=== PATIENT | male | born 1965 | race Caucasian/White ===

== ENCOUNTER 2024-01-25 16:36 | Inpatient (IN) | payer OTHER ==
[2024-01-25] MEDS ORDERED: LORazepam 2 MG/ML INJ IV PRN (17:10)
[2024-01-25] MEDS: SODIUM CHLORIDE 0.9% 500 ML 500 ML IV STA (17:43)
[2024-01-25 17:47] LABS: Basophils % (A) 1 %; Eosinophils % (A) 1 %; HCT 41.5 % (39.0-53.0); HGB 13.9 gm/dL (13.0-17.5); Lymphocytes # (A) 0.5 k/uL (1.0-4.8); Lymphocytes % (A) 14 %; MCH 32.6 pg (25.0-35.0); MCHC 33.5 g/dL (31.0-37.0); MCV 97.4 fL (80.0-100.0); Monocytes # (A) 0.2 k/uL (0-1.0); Monocytes % (A) 5 %; Neutrophils % (A) 79 %; RBC 4.26 m/uL (4.30-5.90); RDW 12.5 % (11.5-15.5); WBC 3.8 k/uL (3.8-10.6)
[2024-01-25] MEDS: LORazepam 2 MG/ML INJ IV STA (17:56)
[2024-01-25 18:05] LABS: ALT 115 U/L (4-49); AST 253 U/L (17-59); African American GFR (CKD) >90 (>60 ml/min/1.73 sqM); Albumin 4.6 g/dL (3.5-5.0); Alkaline Phosphatase 108 U/L (38-126); Anion Gap 21 mmol/L; Blood Urea Nitrogen 13 mg/dL (9-20); Carbon Dioxide 18 mmol/L (22-30); Chloride 100 mmol/L (98-107); Glucose 94 mg/dL (74-99); Lipase 377 U/L (23-300); Magnesium 2.1 mg/dL (1.6-2.3); Non-African American GFR(CKD) >90 (>60 ml/min/1.73 sqM); Phosphorus 3.1 mg/dL (2.5-4.5); Potassium 3.6 mmol/L (3.5-5.1); Sodium 139 mmol/L (137-145); Total Bilirubin 4.1 mg/dL (0.2-1.3); Total Protein 8.8 g/dL (6.3-8.2)
[2024-01-25 18:15] LABS: Alcohol 343 mg/dL
[2024-01-25 18:27] LABS: Platelet Count 19 k/uL (150-450)
[2024-01-25] MEDS: PANTOPRAZOLE 40 MG/10 ML VIAL IVP SCH (18:57)
[2024-01-25 19:03] LABS: Appearance,Urine Clear (Clear); Bilirubin,Urine 1+ (Negative); Blood,Urine Moderate (Negative); Color,Urine Yellow; Glucose,Urine (UA) Negative (Negative); Ketones,Urine 3+ (Negative); Leukocyte Esterase,Urine Negative (Negative); Mucus,Urine Rare /hpf; Nitrite,Urine Negative (Negative); PH, Urine 6.5 (5.0-8.0); Protein,Urine 1+ (Negative); RBC,Urine 1 /hpf (0-5); Specific Gravity,Urine 1.016 (1.001-1.035); Squamous Epithelial Cell,Urine <1 /hpf (0-4); WBC,Urine 1 /hpf (0-5)
--- NOTE | 2024-01-25 19:17 | ED ---
Alcohol HPI - General Chief Complaint: Alcohol Stated Complaint: Withdrawals, ETOH Time Seen by Provider: 01/25/24 16:53 Source: patient Mode of arrival: wheelchair Limitations: no limitations - History of Present Illness Initial Comments: 58-year-old male presenting for alcohol detox. Patient is a daily drinker normally drinks about a pint per day. He claims that his last drink was yesterday. Friend went to his hotel today and the patient had a nosebleed. He had also been vomiting and not feeling well. No history of DTs. Denies abdominal pain, chest pain, difficulty breathing, cough, fever, melena, hematochezia. - Related Data Home Medications Medication Instructions Recorded Confirmed No Known Home Medications 01/25/24 01/25/24 Allergies Allergy/AdvReac Type Severity Reaction Status Date / Time No Known Allergies Allergy Verified 01/25/24 19:52 Review of Systems ROS Statement: Those systems with pertinent positive or pertinent negative responses have been documented in the HPI. ROS Other: All systems not noted in ROS Statement are negative. Past Medical History Past Medical History: Hyperlipidemia, Hypertension Additional Past Surgical History / Comment(s): oral surgery Smoking Status: Former smoker, Vaper Past Alcohol Use History: Abuse, Daily, Heavy Past Drug Use History: None Reported General Exam Limitations: no limitations General appearance: alert, appears intoxicated Head exam: Present: atraumatic, normocephalic, normal inspection Eye exam: Present: normal appearance ENT exam: Present: other (Dried blood inside both nostrils) Neck exam: Present: normal inspection. Absent: meningismus Respiratory exam: Present: normal lung sounds bilaterally. Absent: respiratory distress, wheezes, rales, rhonchi, stridor Cardiovascular Exam: Present: regular rate, normal rhythm, normal heart sounds. Absent: systolic murmur, diastolic murmur, rubs, gallop, clicks Neurological exam: Present: alert, oriented X3 Skin exam: Present: normal color Course Vital Signs 01/25/24 01/25/24 01/25/24 16:45 17:10 18:39 Temperature 97.7 F Pulse Rate 99 87 106 H Pulse Rate [ Pulse Oximetery ] Respiratory 17 16 16 Rate Blood Pressure 146/96 149/92 148/94 Blood Pressure [Left Arm] O2 Sat by Pulse 98 95 95 Oximetry 01/26/24 01/26/24 01/26/24 00:25 04:23 05:50 Temperature 98.3 F Pulse Rate 95 103 H 104 H Pulse Rate [ Pulse Oximetery ] Respiratory 17 18 14 Rate Blood Pressure 127/83 110/77 Blood Pressure [Left Arm] O2 Sat by Pulse 97 96 95 Oximetry 01/26/24 08:00 Temperature 98.1 F Pulse Rate Pulse Rate [ 88 Pulse Oximetery ] Respiratory 18 Rate Blood Pressure Blood Pressure 160/59 [Left Arm] O2 Sat by Pulse 94 L Oximetry Medical Decision Making - Medical Decision Making Was pt. sent in by a medical professional or institution (, [facility], [facility], urgent care, hospital, or detention...) When possible be specific @ -No Did you speak to anyone other than the patient for history (EMS, parent, family, police, friend...)? What history was obtained from this source @ -No Did you review nursing and triage notes (agree or disagree)? Why? @ -I reviewed and agree with nursing and triage notes Were old charts reviewed (outside hosp., previous admission, EMS record, old EKG, old radiological studies, urgent care reports/EKG's, detention records)? Report findings @ -No old charts were reviewed Differential Diagnosis (chest pain, altered mental status, abdominal pain women, abdominal pain men, vaginal bleeding, weakness, fever, dyspnea, syncope, headache, dizziness, GI bleed, back pain, seizure, CVA, palpatations, mental health, musculoskeletal)? @ -Differential includes alcohol intoxication, delirium tremens, polysubstance use, this is not an all-inclusive list EKG interpreted by me (3pts min.). @ -As above X-rays interpreted by me (1pt min.). @ -None done CT interpreted by me (1pt min.). @ -Brain CT shows no acute intracranial process U/S interpreted by me (1pt. min.). @ -Ultrasound shows increased hepatic parenchymal echogenicity suggesting steatosis. Biliary sludge without significant gallbladder wall thickening/edema What testing was considered but not performed or refused? (CT, X-rays, U/S, labs)? Why? @ -None What meds were considered but not given or refused? Why? @ -None Did you discuss the management of the patient with other professionals (professionals i.e. , PA, FLOOR LAYER, lab, RT, psych nurse, clinical social work aide, securities counselor, teacher, customs officer, block and case maker)? Give summary @ -I initially spoke with Ulises nurse practitioner from [facility], she requested further workup regarding the patient's hepatitis. My attending Dr. Stover discussed the case with Dr. Siddiqi who accepts admission Was smoking cessation discussed for >3mins.? @ -No Was critical care preformed (if so, how long)? @ -No Were there social determinants of health that impacted care today? How? (Homelessness, low income, unemployed, alcoholism, drug addiction, transportation, low edu. Level, literacy, decrease access to med. care, fci, rehab)? @ -No Was there de-escalation of care discussed even if they declined (Discuss DNR or withdrawal of care, Hospice)? DNR status @ -No What co-morbidities impacted this encounter? (DM, HTN, Smoking, COPD, CAD, Cancer, CVA, ARF, Chemo, Hep., AIDS, mental health diagnosis, sleep apnea, morbid obesity)? @ -None Was patient admitted / discharged? Hospital course, mention meds given and route, prescriptions, significant lab abnormalities, going to OR and other pertinent info. @ -58-year-old male presenting with alcohol intoxication pending withdrawal. Patient did have a nosebleed earlier today. History and physical examination are conducted. Evidence of alcoholic hepatitis, bilirubin 4.1 AST 253 ALT 115. Lipase 377, patient is having no abdominal pain or vomiting. Serum alcohol 343. Negative urine toxicology. No evidence of UTI. Platelets are 19, patient has no history of thrombocytopenia. No active bleeding. May be due to chronic alcoholism. Ultrasound is obtained which shows steatosis and biliary sludge. Head CT shows no acute intracranial process. My attending discussed the case with [facility] physician group. Patient will be admitted for alcohol intoxication with impending withdrawal. Patient is agreeable with this plan. I discussed this case with my attending Dr. Stover Undiagnosed new problem with uncertain prognosis? @ -No Drug Therapy requiring intensive monitoring for toxicity (Heparin, Nitro, Insulin, Cardizem)? @ -No Were any procedures done? @ -No Diagnosis/symptom? @ -Alcohol intoxication, thrombocytopenia, alcoholic hepatitis Acute, or Chronic, or Acute on Chronic? @ -Acute Uncomplicated (without systemic symptoms) or Complicated (systemic symptoms)? @ -Complicated Side effects of treatment? @ -No Exacerbation, Progression, or Severe Exacerbation? @ -No Poses a threat to life or bodily function? How? (Chest pain, USA, ID, pneumonia, PE, COPD, DKA, ARF, appy, cholecystitis, CVA, Diverticulitis, Homicidal, Suicidal, threat to staff... and all critical care pts) @ -Yes - Lab Data Result diagrams: 01/26/24 14:05 01/26/24 04:52 Lab Results 01/25/24 01/25/24 01/25/24 Range/Units 17:32 17:32 18:54 WBC 3.8 (3.8-10.6) k/uL RBC 4.26 L (4.30-5.90) m/uL Hgb 13.9 (13.0-17.5) gm/dL Hct 41.5 (39.0-53.0) % MCV 97.4 (80.0-100.0) fL MCH 32.6 (25.0-35.0) pg MCHC 33.5 (31.0-37.0) g/dL RDW 12.5 (11.5-15.5) % Plt Count 19 L* (150-450) k/uL MPV 9.0 Neutrophils % 79 % Lymphocytes % 14 % Monocytes % 5 % Eosinophils % 1 % Basophils % 1 % Neutrophils # 3.0 (1.3-7.7) k/uL Lymphocytes # 0.5 L (1.0-4.8) k/uL Monocytes # 0.2 (0-1.0) k/uL Eosinophils # 0.0 (0-0.7) k/uL Basophils # 0.0 (0-0.2) k/uL Manual Slide Review Performed Sodium 139 (137-145) mmol/L Potassium 3.6 (3.5-5.1) mmol/L Chloride 100 (98-107) mmol/L Carbon Dioxide 18 L (22-30) mmol/L Anion Gap 21 mmol/L BUN 13 (9-20) mg/dL Creatinine 0.75 (0.66-1.25) mg/dL Est GFR (CKD-EPI)AfAm >90 (>60 ml/min/1.73 sqM) Est GFR (CKD-EPI)NonAf >90 (>60 ml/min/1.73 sqM) Glucose 94 (74-99) mg/dL Calcium 8.0 L (8.4-10.2) mg/dL Phosphorus 3.1 (2.5-4.5) mg/dL Magnesium 2.1 (1.6-2.3) mg/dL Total Bilirubin 4.1 H (0.2-1.3) mg/dL AST 253 H (17-59) U/L ALT 115 H (4-49) U/L Alkaline Phosphatase 108 (38-126) U/L Total Protein 8.8 H (6.3-8.2) g/dL Albumin 4.6 (3.5-5.0) g/dL Lipase 377 H (23-300) U/L Urine Color Yellow Urine Appearance Clear (Clear) Urine pH 6.5 (5.0-8.0) Ur Specific [place] 1.016 (1.001-1.035) Urine Protein 1+ H (Negative) Urine Glucose (UA) Negative (Negative) Urine Ketones 3+ H (Negative) Urine Blood Moderate H (Negative) Urine Nitrite Negative (Negative) Urine Bilirubin 1+ H (Negative) Urine Urobilinogen 4.0 (<2.0) mg/dL Ur Leukocyte Esterase Negative (Negative) Urine RBC 1 (0-5) /hpf Urine WBC 1 (0-5) /hpf Ur Squamous Epith Cells <1 (0-4) /hpf Urine Mucus Rare H (None) /hpf Urine Opiates Screen Not Detected (NotDetected) Ur Oxycodone Screen Not Detected (NotDetected) Urine Methadone Screen Not Detected (NotDetected) Ur Barbiturates Screen Not Detected (NotDetected) U Tricyclic Antidepress Not Detected (NotDetected) Ur Phencyclidine Scrn Not Detected (NotDetected) Ur Amphetamines Screen Not Detected (NotDetected) U Methamphetamines Scrn Not Detected (NotDetected) U Benzodiazepines Scrn Not Detected (NotDetected) Urine Cocaine Screen Not Detected (NotDetected) U Marijuana (THC) Screen Not Detected (NotDetected) Serum Alcohol 343 H* mg/dL Disposition Clinical Impression: Alcoholic intoxication, Thrombocytopenia Disposition: ADMITTED IP TO THIS [facility] Condition: Serious
[2024-01-25 19:25] LABS: Amphetamine Screen,Urine Not Detected (NotDetected); Barbiturate Screen,Urine Not Detected (NotDetected); Benzodiazepines Screen,Urine Not Detected (NotDetected); Cocaine Screen,Urine Not Detected (NotDetected); Methadone Screen, Urine Not Detected (NotDetected); Opiate Screen,Urine Not Detected (NotDetected); Oxycodone Screen, Urine Not Detected (NotDetected); Phencyclidine Screen,Urine Not Detected (NotDetected); Tricyclic Antidepressant,Urine Not Detected (NotDetected); Urn Cannabinoid Scrn Not Detected (NotDetected)
--- NOTE | 2024-01-25 19:45 | US ---
EXAMINATION TYPE: US abdomen limited DATE OF EXAM: 01/25/2024 COMPARISON: NONE CLINICAL INDICATION: Male, 58 years old with history of elevated bilirubin; elevated liver enzymes. P t is an alcoholic TECHNIQUE: Grayscale and color Doppler imaging of the right upper quadrant was performed. FINDINGS: EXAM MEASUREMENTS: Liver Length: 19.7 cm Gallbladder Wall: 0.3 cm CBD: 0.2 cm Right Kidney: 13.5 x 6.6 x 6.0 cm BOX CUTTER NOTES: Pancreas: parts seen appear wnl Liver: Increased attenuation, decreased visualization of vessels suggestive of fatty infiltrate Gallbladder: Tumefactive sludge seen inside Evidence for sonographic Yañez's sign: No CBD: limited visualization Right Kidney: wnl IMPRESSION: 1. Increased hepatic parenchymal echogenicity suggesting steatosis. 2. Biliary sludge without significant gallbladder wall thickening/edema. [facility], , 01/25/2024 7:43 PM
--- NOTE | 2024-01-25 20:31 | CT ---
EXAMINATION TYPE: CT brain wo con DATE OF EXAM: 01/25/2024 8:16 PM COMPARISON: None available. CLINICAL INDICATION: Male, 58 years old with history of SIM, thrombocytopenia, SIM, thrombocytopenia. TECHNIQUE: Brain: Axial CT images of the brain were obtained with coronal and sagittal reformats created and rev iewed. Contrast used: None. Oral contrast used: None. CT DLP: 1168.4 mGycm, Automated exposure control for dose reduction was used. FINDINGS: Brain: Extra-axial spaces: No abnormal extra-axial fluid collections. Ventricular system: Within normal limits Cerebral parenchyma: No acute intraparenchymal hemorrhage or mass effect. The maldonado-white junction is well differentiated. Scattered hypoattenuating areas are seen within the white matter. Cerebellum: Unremarkable. Mass effect: No evidence of midline shift. Intracranial vasculature: unremarkable Soft tissues: Normal. Calvarium/osseous structures: No depressed skull fracture. Paranasal sinuses and mastoid air cells: Mucosal thickening along the floor of the maxillary sinuses. Visualized orbits: Orbital contents are intact. IMPRESSION: No acute intracranial process. [facility], , 01/25/2024 8:29 PM
[2024-01-25] MEDS ORDERED: NALOXONE 0.4 MG/ML 1 ML VIAL IV PRN (20:43)
[2024-01-25] MEDS: LORazepam 2 MG/ML INJ IV PRN (21:48)
[2024-01-25] MEDS: ONDANSETRON 4 MG/2 ML VIAL IVP PRN (21:48)
[2024-01-25] MEDS: SODIUM CHLORIDE 0.9% 1,000 ML IV SCH (21:50)
--- NOTE | 2024-01-26 01:24 | P.HPIM ---
History of Present Illness H&P Date: 01/25/24 Chief Complaint: Vomiting Patient is a 58-year-old male with psoriasis, hypertension, heavy alcohol abuse presented to the ED with vomiting and nosebleed. The patient was found in his hotel by his partner earlier today. The patient's bed was found to be covered with blood as he had a nose bleed. The patient was also vomiting that started a couple days ago. He reports hemoptysis today. The patient states that he has been picking at his ears, nose and umbilicus. Denies having such bleeds or low platelet count in the past. Denies hematuria, hematochezia, melena. His last drink was yesterday afternoon. He usually drinks about a pint a day. He has been drinking for over 30 years, but has had periods of sobriety in between. He mentions being sober for a few months this year, but then he rebounds. He mentions while trying to quit drinking in the past he had withdrawal symptoms. He denies having any withdrawal seizures in the past. Additionally he reports dry heaves, tremors, chest pain, headache and blurred vision. Denies hallucinations. He attempted suicide about 6 years ago, but denies any suicidal ideation currently. Moreover, his partner mentions that the patient had the flu 2-3 weeks ago. The patient is from [place]. Her partner who lives in [place], brought him to [place] 3 months ago as they are trying to be together, and he lives at a hotel for now. Denies taking any medication regularly for his hypertension and psoriasis. Denies fever, chills, shortness of breath, cough, palpitations, abdominal pain, dysuria, slurred speech. ED documentation reviewed. In the ED patient was treated with lorazepam 1 mg, pantoprazole 40 mg, 0.9 normal saline bolus. Vitals on admission T 97.7 F, ME 99 bpm, RR 17, BP 146/96, O2 sat 98% on room air Abdomen Ultrasound shows increased hepatic parenchymal echogenicity suggesting steatosis, biliary sludge without significant bilateral wall thickening/edema Brain CT shows no acute intracranial process Labs on admission show platelet count 19, potassium 3.6, total bilirubin 4.1, AST 253, ALT 115, lipase 377, WBC 3.8, hemoglobin 13.9, sodium 139, magnesium 2.1, phosphorus 3.1 UA shows 1+ protein, 3+ ketones, moderate blood, 1+ bilirubin, rare mucus Urine toxicology is negative Serum alcohol is 343 Review of systems: Pertinent positives and negatives as discussed in HPI, a complete review of systems was performed and all other systems are negative. Social history: Tobacco: Vaper, former smoker Alcohol: Daily heavy drinker, a pint a day Recreational drugs: Denies use Travel: No recent travel history Sick contacts: None Physical examination: Vital signs reviewed General: moderate distress, appears at stated age, overweight Derm: warm, dry, intact, psoriasis patches on b/l LE and on forehead Head: normocephalic, symmetric, dried blood around the nares and on pinna Eyes: Extraocular movements intact Mouth: dried blood on the sides of the mouth Cardiovascular: S1 S2 reg, no murmur Lungs: CTA bilateral, no rhonchi, no rales, no accessory muscle use Abdominal: soft, non-tender to palpation, dried blood in umblicus Extremities: No cyanosis, clubbing, or pedal edema, bruise on the right upper arm Neuro: Alert, Oriented, strength 5/5 in all 4 extremities Psych: well appearing, appropriate affect Assessment/Plan: Patient is a 58-year-old male with psoriasis, hypertension, heavy alcohol abuse presented to the ED with vomiting and nosebleed. He has been admitted for alcohol steatohepatitis, alcoholic ketoacidosis and alcohol withdrawal symptoms monitoring and management. Active: #. Alcoholic steatohepatitis #. Alcoholic ketoacidosis #. Alcohol withdrawal Elevated: Anion gap 21, Serum alcohol at 343 , total bilirubin 4.1, AST 253, ALT 115, unremarkable lipase 377 Abdomen Ultrasound shows increased hepatic parenchymal echogenicity suggesting steatosis, biliary sludge without significant bilateral wall thickening/edema UA shows 1+ protein, 3+ ketones, moderate blood, 1+ bilirubin, rare mucus Continue Lorazepam 1 mg IV every 2 hours as needed (CIWA 8 or 9), lorazepam 1 mg IV every hour as needed (CIWA 10-15), lorazepam 2 mg IV every 10 M as needed (CIWA 16 or higher) Continue 0.9 normal saline at 75 mL/h Thiamine 500 mg IV once Initiate Thiamine 100 mg PO daily and Folic acid 1 mg PO daily Obtain serum osmolality, serum beta hydroxybutyrate, acetone level Obtain ABG and lactic acid Assess CIWA Continue telemetry monitoring Seizure precautions Strict I/Os Consult social work for rehabilitation #. Thrombocytopenia due to Alcoholic steatohepatitis Low platelet count 19 UA shows moderate blood Brain CT shows no acute intracranial process Continue Pantoprazole 40 mg PO BID Obtain coagulation panel, fibrinogen, d-dimer Monitor CBC #. Nausea and vomiting Continue ondansetron 4 mg IVP every 8 hours as needed #. Hypokalemia Potassium chloride 20 meq IVPB once Monitor BMP Chronic: #. Hypertension Not currently on any home meds F: 0.9 normal saline at 75 mL/h E: Replete as required N: Heart healthy diet A: Ambulatory GI prophylaxis: Pantoprazole 40 mg PO BID DVT PPX , mechanical due to risk of bleeding and severe thrombocytopenia The patient is admitted with an anticipated more than 2 midnight stay for evaluation of alcohol withdrawal symptoms CODE STATUS: FULL CODE Discussed with: Patient Anticipated discharge place: Home I have seen and evaluated the patient today. I Discussed the case with the resident and agree with the resident's findings I edited the assessment and plan as necessary as documented in the resident's note. Past Medical History Past Medical History: Hyperlipidemia, Hypertension Additional Past Surgical History / Comment(s): oral surgery Smoking Status: Former smoker, Vaper Past Alcohol Use History: Abuse, Daily, Heavy Past Drug Use History: None Reported Medications and Allergies Home Medications Medication Instructions Recorded Confirmed Type No Known Home Medications 01/25/24 01/25/24 History Allergies Allergy/AdvReac Type Severity Reaction Status Date / Time No Known Allergies Allergy Verified 01/25/24 19:52 Physical Exam Vitals: Vital Signs Temp Pulse Resp BP Pulse Ox 01/25/24 18:39 106 H 16 148/94 95 01/25/24 17:10 87 16 149/92 95 01/25/24 16:45 97.7 F 99 17 146/96 98 Intake and Output 01/25/24 01/25/24 01/25/24 06:59 14:59 22:59 Other: Weight 99.79 kg Results CBC & Chem 7: 01/25/24 17:32 01/25/24 17:32 Labs: Abnormal Lab Results - Last 24 Hours (Table) 01/25/24 01/25/24 01/25/24 Range/Units 17:32 17:32 18:54 RBC 4.26 L (4.30-5.90) m/uL Plt Count 19 L* (150-450) k/uL Lymphocytes # 0.5 L (1.0-4.8) k/uL Carbon Dioxide 18 L (22-30) mmol/L Calcium 8.0 L (8.4-10.2) mg/dL Total Bilirubin 4.1 H (0.2-1.3) mg/dL AST 253 H (17-59) U/L ALT 115 H (4-49) U/L Total Protein 8.8 H (6.3-8.2) g/dL Lipase 377 H (23-300) U/L Urine Protein 1+ H (Negative) Urine Ketones 3+ H (Negative) Urine Blood Moderate H (Negative) Urine Bilirubin 1+ H (Negative) Urine Mucus Rare H (None) /hpf Serum Alcohol 343 H* mg/dL
[2024-01-26] MEDS: POTASSIUM CHLORIDE 20 MEQ in WATER FOR INJECTION 1 100ML.BAG IVPB ONE (03:47)
[2024-01-26] MEDS: THIAMINE 500 MG in SODIUM CHLORIDE 0.9% 50 ML IVPB ONE (03:55)
[2024-01-26] MEDS: POTASSIUM CHLORIDE ER 20 MEQ TAB.ER PO STA (03:58)
[2024-01-26 04:30] LABS: ABG Base Excess -1.7 mmol/L; ABG HCO3 22 mmol/L (21-25); ABG Oxygen Saturation 93.9 % (94-97); ABG PCO2 35 mmHg (35-45); ABG PH 7.41 (7.35-7.45); ABG PO2 72 mmHg (83-108); ABG TCO2 24 mmol/L (19-24); Allen Test Performed? Yes
[2024-01-26 06:27] LABS: INR 1.3 (<1.2); Partial Thromboplastin Time 26.4 sec (22.0-30.0); Prothrombin Time 13.3 sec (10.0-12.5)
[2024-01-26] MEDS: FOLIC ACID 1 MG TAB PO SCH (08:53)
[2024-01-26] MEDS: THIAMINE 100 MG TAB PO SCH (08:53)
[2024-01-26 10:20] LABS: HCT 36.5 % (39.6-50.0); HGB 12.3 g/dL (13.0-17.0); Immature Platelet Fraction 11.6 % (1.1-6.1); MCH 31.9 pg (27.0-32.0); MCHC 33.7 g/dL (32.0-37.0); MCV 94.8 FL (80.0-97.0); Mean Platelet Volume 11.4 FL (9.5-12.2); NRBC Per 100 WBC 0 X 10*3/uL (0.00-0.01); Platelet Count 8 X 10*3/uL (140-440); RBC 3.85 X 10*6/uL (4.40-5.60); RDW 12.6 % (11.5-14.5)
--- NOTE | 2024-01-26 10:22 | P.PN ---
Subjective H&P Date: 01/25/24 Chief Complaint: Vomiting Patient is a 58-year-old male with psoriasis, hypertension, heavy alcohol abuse presented to the ED with vomiting and nosebleed. The patient was found in his hotel by his partner earlier today. The patient's bed was found to be covered with blood as he had a nose bleed. The patient was also vomiting that started a couple days ago. He reports hemoptysis today. The patient states that he has been picking at his ears, nose and umbilicus. Denies having such bleeds or low platelet count in the past. Denies hematuria, hematochezia, melena. His last drink was yesterday afternoon. He usually drinks about a pint a day. He has been drinking for over 30 years, but has had periods of sobriety in between. He mentions being sober for a few months this year, but then he rebounds. He mentions while trying to quit drinking in the past he had withdrawal symptoms. He denies having any withdrawal seizures in the past. Additionally he reports dry heaves, tremors, chest pain, headache and blurred vision. Denies hallucinations. He attempted suicide about 6 years ago, but denies any suicidal ideation currently. Moreover, his partner mentions that the patient had the flu 2-3 weeks ago. The patient is from [place]. Her partner who lives in [place], brought him to [place] 3 months ago as they are trying to be together, and he lives at a hotel for now. Denies taking any medication regularly for his hypertension and psoriasis. Denies fever, chills, shortness of breath, cough, palpitations, abdominal pain, dysuria, slurred speech. ED documentation reviewed. In the ED patient was treated with lorazepam 1 mg, pantoprazole 40 mg, 0.9 normal saline bolus. Vitals on admission T 97.7 F, VT 99 bpm, RR 17, BP 146/96, O2 sat 98% on room air Abdomen Ultrasound shows increased hepatic parenchymal echogenicity suggesting steatosis, biliary sludge without significant bilateral wall thickening/edema Brain CT shows no acute intracranial process Labs on admission show platelet count 19, potassium 3.6, total bilirubin 4.1, AST 253, ALT 115, lipase 377, WBC 3.8, hemoglobin 13.9, sodium 139, magnesium 2.1, phosphorus 3.1 UA shows 1+ protein, 3+ ketones, moderate blood, 1+ bilirubin, rare mucus Urine toxicology is negative Serum alcohol is 343 Review of systems: Pertinent positives and negatives as discussed in HPI, a complete review of systems was performed and all other systems are negative. Social history: Tobacco: Vaper, former smoker Alcohol: Daily heavy drinker, a pint a day Recreational drugs: Denies use Travel: No recent travel history Sick contacts: None Physical examination: Vital signs reviewed General: moderate distress, appears at stated age, overweight Derm: warm, dry, intact, psoriasis patches on b/l LE and on forehead Head: normocephalic, symmetric, dried blood around the nares and on pinna Eyes: Extraocular movements intact Mouth: dried blood on the sides of the mouth Cardiovascular: S1 S2 reg, no murmur Lungs: CTA bilateral, no rhonchi, no rales, no accessory muscle use Abdominal: soft, non-tender to palpation, dried blood in umblicus Extremities: No cyanosis, clubbing, or pedal edema, bruise on the right upper arm Neuro: Alert, Oriented, strength 5/5 in all 4 extremities Psych: well appearing, appropriate affect Objective - Vital Signs Vital signs: Vital Signs Temp 98.1 F 01/26/24 08:00 Pulse 88 01/26/24 08:00 Resp 18 01/26/24 08:00 BP 160/59 01/26/24 08:00 Pulse Ox 94 L 01/26/24 08:00 FiO2 Intake & Output 01/25/24 01/26/24 01/26/24 18:59 06:59 18:59 Weight 99.79 kg Other: Voiding Method Toilet - Labs CBC & Chem 7: 01/25/24 17:32 01/25/24 17:32 Labs: Abnormal Lab Results - Last 24 Hours (Table) 01/25/24 01/25/24 01/25/24 Range/Units 17:32 17:32 18:54 RBC 4.26 L (4.30-5.90) m/uL Plt Count 19 L* (150-450) k/uL Lymphocytes # 0.5 L (1.0-4.8) k/uL PT (10.0-12.5) sec INR (<1.2) D-Dimer (<0.60) mg/L FEU ABG pO2 (83-108) mmHg ABG O2 Saturation (94-97) % Hemoglobin (13.0-17.5) gm/dL Carbon Dioxide 18 L (22-30) mmol/L Plasma Lactic Acid Papo (0.7-2.0) mmol/L Calcium 8.0 L (8.4-10.2) mg/dL Total Bilirubin 4.1 H (0.2-1.3) mg/dL AST 253 H (17-59) U/L ALT 115 H (4-49) U/L Total Protein 8.8 H (6.3-8.2) g/dL Lipase 377 H (23-300) U/L Urine Protein 1+ H (Negative) Urine Ketones 3+ H (Negative) Urine Blood Moderate H (Negative) Urine Bilirubin 1+ H (Negative) Urine Mucus Rare H (None) /hpf Serum Alcohol 343 H* mg/dL 01/26/24 01/26/24 01/26/24 Range/Units 04:28 04:52 04:52 RBC (4.30-5.90) m/uL Plt Count (150-450) k/uL Lymphocytes # (1.0-4.8) k/uL PT 13.3 H (10.0-12.5) sec INR 1.3 H (<1.2) D-Dimer 0.73 H (<0.60) mg/L FEU ABG pO2 72 L (83-108) mmHg ABG O2 Saturation 93.9 L (94-97) % Hemoglobin 12.4 L (13.0-17.5) gm/dL Carbon Dioxide (22-30) mmol/L Plasma Lactic Acid Papo 2.4 H* (0.7-2.0) mmol/L Calcium (8.4-10.2) mg/dL Total Bilirubin (0.2-1.3) mg/dL AST (17-59) U/L ALT (4-49) U/L Total Protein (6.3-8.2) g/dL Lipase (23-300) U/L Urine Protein (Negative) Urine Ketones (Negative) Urine Blood (Negative) Urine Bilirubin (Negative) Urine Mucus (None) /hpf Serum Alcohol mg/dL Assessment and Plan Assessment: Assessment/Plan: Patient is a 58-year-old male with psoriasis, hypertension, heavy alcohol abuse presented to the ED with vomiting and nosebleed. He has been admitted for alcohol steatohepatitis, alcoholic ketoacidosis and alcohol withdrawal symptoms monitoring and management. Active: #. Alcoholic steatohepatitis #. Alcoholic ketoacidosis #. Alcohol withdrawal Elevated: Anion gap 21, Serum alcohol at 343 , total bilirubin 4.1, AST 253, ALT 115, unremarkable lipase 377 Abdomen Ultrasound shows increased hepatic parenchymal echogenicity suggesting steatosis, biliary sludge without significant bilateral wall thickening/edema UA shows 1+ protein, 3+ ketones, moderate blood, 1+ bilirubin, rare mucus Continue Lorazepam 1 mg IV every 2 hours as needed (CIWA 8 or 9), lorazepam 1 mg IV every hour as needed (CIWA 10-15), lorazepam 2 mg IV every 10 M as needed (CIWA 16 or higher) Continue 0.9 normal saline at 75 mL/h Thiamine 500 mg IV once Initiate Thiamine 100 mg PO daily and Folic acid 1 mg PO daily Obtain serum osmolality, serum beta hydroxybutyrate, acetone level Obtain ABG and lactic acid Assess CIWA Continue telemetry monitoring Seizure precautions Strict I/Os Consult social work for rehabilitation #. Thrombocytopenia due to Alcoholic steatohepatitis Low platelet count 19 UA shows moderate blood Brain CT shows no acute intracranial process Continue Pantoprazole 40 mg PO BID Obtain coagulation panel, fibrinogen, d-dimer Monitor CBC #. Nausea and vomiting Continue ondansetron 4 mg IVP every 8 hours as needed #. Hypokalemia Potassium chloride 20 meq IVPB once Monitor BMP Chronic: #. Hypertension Not currently on any home meds 01/25 Patient seen and examined at bedside Significant other also present at bedside Still having tremors with extension of his hands Continue Ativan as needed per CIWA High risk for seizures Continue to monitor closely for seizures, worsening withdrawal symptoms Seizure precautions Fall precautions Continue folic acid/thiamine F: 0.9 normal saline at 75 mL/h E: Replete as required N: Heart healthy diet A: Ambulatory GI prophylaxis: Pantoprazole 40 mg PO BID DVT PPX , mechanical due to risk of bleeding and severe thrombocytopenia The patient is admitted with an anticipated more than 2 midnight stay for evaluation of alcohol withdrawal symptoms CODE STATUS: FULL CODE Discussed with: Patient Anticipated discharge place: Home
[2024-01-26 11:13] LABS: Calcium 7.7 mg/dL (8.7-10.3); Carbon Dioxide 17.3 mmol/L (21.6-31.8); Chloride 97 mmol/L (96-109); Glucose 67 mg/dL (70-110); Potassium 3.7 mmol/L (3.5-5.5); Sodium 139 mmol/L (135-145)
[2024-01-26 14:21] LABS: Basophils % (A) 1 %; Eosinophils % (A) 1 %; HCT 35.8 % (39.0-53.0); HGB 12.2 gm/dL (13.0-17.5); Lymphocytes # (A) 0.6 k/uL (1.0-4.8); Lymphocytes % (A) 21 %; MCH 32.9 pg (25.0-35.0); MCHC 34.1 g/dL (31.0-37.0); MCV 96.6 fL (80.0-100.0); Mean Platelet Volume 11.3; Monocytes # (A) 0.1 k/uL (0-1.0); Monocytes % (A) 5 %; Neutrophils # (A) 1.8 k/uL (1.3-7.7); Neutrophils % (A) 70 %; RBC 3.71 m/uL (4.30-5.90); RDW 13.1 % (11.5-15.5); WBC 2.6 k/uL (3.8-10.6)
[2024-01-26 14:26] LABS: Platelet Count 11 k/uL (150-450)
[2024-01-27 07:12] LABS: Glucose,Whole Blood 94 mg/dL (70-110)
[2024-01-27 10:48] LABS: ALT 99 U/L (4-49); AST 205 U/L (17-59); African American GFR (CKD) >90 (>60 ml/min/1.73 sqM); Albumin 3.6 g/dL (3.5-5.0); Alkaline Phosphatase 84 U/L (38-126); Anion Gap 13 mmol/L; Blood Urea Nitrogen 13 mg/dL (9-20); Calcium 7.9 mg/dL (8.4-10.2); Carbon Dioxide 23 mmol/L (22-30); Chloride 98 mmol/L (98-107); Globulin 3.5 g/dL; Glucose 93 mg/dL (74-99); Non-African American GFR(CKD) >90 (>60 ml/min/1.73 sqM); Potassium 3.1 mmol/L (3.5-5.1); Sodium 134 mmol/L (137-145); Total Bilirubin 4.9 mg/dL (0.2-1.3); Total Protein 7.1 g/dL (6.3-8.2)
[2024-01-27 12:10] LABS: Glucose,Whole Blood 86 mg/dL (70-110)
--- NOTE | 2024-01-27 15:34 | P.PN ---
Subjective Progress Note Date: 01/27/24 Hospital Course: A 58-year-old male with past medical history of psoriasis, alcohol use disorder, HTN, who presented to the ER with vomiting, nosebleed, denied hematuria, hematochezia, melena. Patient drinks a paint of hard liquor a day and has been drinking for 2 years plus with some periods of sobriety in the past. No withdrawal seizures or DTs reported, 1 suicide attempt 6 years ago, currently on not suicidal. Patient was admitted for alcohol withdrawal, severe thrombocytopenia. Patient would like to get rehab after discharge. Subjective: Patient was seen and examined at bedside, last episode of vomiting 01/26 at 4 in the morning Pertinent positives and negatives as discussed above, a complete review of systems was performed and all other systems are negative. Vitals Signs Reviewed. General: [nontoxic], [no distress], [appears at stated age] Derm: [warm], [dry] Head: [atraumatic], [normocephalic], [symmetric] Eyes: [EOMI], [no lid lag], [anicteric sclera] Mouth: [no lip lesion], [mucus membranes moist] Cardiovascular: [S1S2 reg], [no murmur] Lungs: [CTA bilateral], [no rhonchi, no rales] , [no accessory muscle use] Abdominal: [soft], epigastric tenderness], [no guarding], [no appreciable organomegaly] Ext: [no gross muscle atrophy], [no edema], [no contractures], psoriatic plaques, bruising Neuro: [ CN II-XI grossly intact], [no focal neuro deficits] Psych: [Alert], [oriented], [appropriate affect] Data Reviewed Today: Pertinent Labs: CBC from 01/25 with leukopenia 2.6, thrombocytopenia 11, anemia 12.2, CMP 01/26 with mild hyponatremia 134, hypokalemia 3.1, normal creatinine, elevated total bilirubin 4.9, elevated AST 205 ALT 99 Assessment and Plan: Alcohol withdrawal Severe alcohol abuse Alcoholic ketoacidosis, resolved Alcohol steatohepatitis Alcohol-related severe acute thrombocytopenia -CIWA with Ativan -Continue multivitamins -Seizure precautions -Social work on board -PPI -Alcohol cessation strongly recommended -Daily CBC, transfuse for platelet less than 10 with no bleeding, less than 50 with bleeding Hypokalemia: Potassium replaced, follow-up BMP in the morning DVT ppx: SCD Nausea and vomiting, continue on the central HTN: Not on home meds, BP is fairly controlled Anticipated discharge place: [Home Anticipated discharge time: 24-48 Objective - Vital Signs Vital signs: Vital Signs Temp 97.8 F 01/27/24 12:19 Pulse 92 01/27/24 12:19 Resp 16 01/27/24 12:19 BP 142/85 01/27/24 12:19 Pulse Ox 94 L 01/27/24 12:19 FiO2 Intake & Output 01/26/24 01/27/24 01/27/24 18:59 06:59 18:59 Intake Total 780 780 Output Total 900 980 Balance -120 -980 780 Weight 99.79 kg Intake: Oral 780 780 Output: Urine 900 980 Other: Voiding Method Toilet Urinal - Labs CBC & Chem 7: 01/26/24 14:05 01/27/24 09:37 Labs: Abnormal Lab Results - Last 24 Hours (Table) 01/27/24 Range/Units 09:37 Sodium 134 L (137-145) mmol/L Potassium 3.1 L (3.5-5.1) mmol/L Creatinine 0.63 L (0.66-1.25) mg/dL Calcium 7.9 L (8.4-10.2) mg/dL Total Bilirubin 4.9 H (0.2-1.3) mg/dL AST 205 H (17-59) U/L ALT 99 H (4-49) U/L
[2024-01-27 16:21] LABS: Basophils # (A) 0.02 X 10*3/uL (0.00-0.10); Basophils % (A) 0.8 %; Eosinophils # (A) 0.02 X 10*3/uL (0.04-0.35); Eosinophils % (A) 0.8 %; HCT 32.3 % (39.6-50.0); HGB 11.2 g/dL (13.0-17.0); Immature Platelet Fraction 12.3 % (1.1-6.1); Lymphocytes # (A) 0.33 X 10*3/uL (0.90-5.00); Lymphocytes % (A) 13.6 %; MCHC 34.7 g/dL (32.0-37.0); MCV 95.3 FL (80.0-97.0); Mean Platelet Volume 12.1 FL (9.5-12.2); Monocytes # (A) 0.27 X 10*3/uL (0.20-1.00); Monocytes % (A) 11.1 %; NRBC Per 100 WBC 0 X 10*3/uL (0.00-0.01); Neutrophils # (A) 1.78 X 10*3/uL (1.80-7.70); Neutrophils % (A) 73.3 %; Platelet Count 7 X 10*3/uL (140-440); RBC 3.39 X 10*6/uL (4.40-5.60); RDW 12.3 % (11.5-14.5); WBC 2.43 X 10*3/uL (4.50-10.00)
[2024-01-27] MEDS: POTASSIUM CHLORIDE ER 20 MEQ TAB.ER PO ONE (16:24)
[2024-01-27 17:05] LABS: Glucose,Whole Blood 105 mg/dL (70-110)
[2024-01-27 17:24] LABS: INR 1.4 (<1.2); Partial Thromboplastin Time 26.4 sec (22.0-30.0); Prothrombin Time 14.2 sec (10.0-12.5)
[2024-01-27 20:32] LABS: Glucose,Whole Blood 110 mg/dL (70-110)
[2024-01-27 21:28] LABS: Basophils % (A) 0 %; Eosinophils % (A) 1 %; HCT 35.7 % (39.0-53.0); Lymphocytes # (A) 0.6 k/uL (1.0-4.8); Lymphocytes % (A) 18 %; MCH 32.7 pg (25.0-35.0); MCHC 33.5 g/dL (31.0-37.0); MCV 97.5 fL (80.0-100.0); Mean Platelet Volume 12.3; Monocytes # (A) 0.3 k/uL (0-1.0); Monocytes % (A) 8 %; Neutrophils # (A) 2.2 k/uL (1.3-7.7); Neutrophils % (A) 72 %; RBC 3.66 m/uL (4.30-5.90); RDW 12.4 % (11.5-15.5); WBC 3.1 k/uL (3.8-10.6)
[2024-01-27 21:45] LABS: Platelet Count 7 k/uL (150-450)
[2024-01-28 07:04] LABS: Glucose,Whole Blood 92 mg/dL (70-110)
[2024-01-28 08:50] LABS: HCT 34.2 % (39.6-50.0); HGB 11.8 g/dL (13.0-17.0); Immature Platelet Fraction 10.8 % (1.1-6.1); MCH 32.5 pg (27.0-32.0); MCHC 34.5 g/dL (32.0-37.0); MCV 94.2 FL (80.0-97.0); Mean Platelet Volume 11.7 FL (9.5-12.2); NRBC Per 100 WBC 0 X 10*3/uL (0.00-0.01); RBC 3.63 X 10*6/uL (4.40-5.60); RDW 12.3 % (11.5-14.5); WBC 3.19 X 10*3/uL (4.50-10.00)
[2024-01-28 09:31] LABS: ALT 96 U/L (10-49); AST 182 U/L (14-35); Albumin 3.7 g/dL (3.8-4.9); Albumin/Globulin Ratio 1.19 Ratio (1.60-3.17); Alkaline Phosphatase 85 U/L (41-126); BUN/Creat Ratio 10.17 Ratio (12.00-20.00); Blood Urea Nitrogen 6.1 mg/dL (9.0-27.0); Calcium 8.2 mg/dL (8.7-10.3); Carbon Dioxide 22.3 mmol/L (21.6-31.8); Chloride 95 mmol/L (96-109); Globulin 3.1 g/dL (1.6-3.3); Glucose 98 mg/dL (70-110); Potassium 2.9 mmol/L (3.5-5.5); Sodium 134 mmol/L (135-145); Total Bilirubin 5.5 mg/dL (0.3-1.2); Total Protein 6.8 g/dL (6.2-8.2)
[2024-01-28 09:34] LABS: Basophils # (A) 0.02 X 10*3/uL (0.00-0.10); Basophils % (A) 0.6 %; Eosinophils # (A) 0.02 X 10*3/uL (0.04-0.35); Eosinophils % (A) 0.6 %; Lymphocytes # (A) 0.37 X 10*3/uL (0.90-5.00); Lymphocytes % (A) 11.6 %; Monocytes # (A) 0.29 X 10*3/uL (0.20-1.00); Monocytes % (A) 9.1 %; Neutrophils # (A) 2.46 X 10*3/uL (1.80-7.70); Neutrophils % (A) 77.2 %; Platelet Count 13 X 10*3/uL (140-440)
[2024-01-28] MEDS: POTASSIUM CHLORIDE ER 20 MEQ TAB.ER PO SCH (10:09)
--- NOTE | 2024-01-28 11:24 | P.PN ---
Subjective Progress Note Date: 01/28/24 Hospital Course: A 58-year-old male with past medical history of psoriasis, alcohol use disorder, HTN, who presented to the ER with vomiting, nosebleed, denied hematuria, hematochezia, melena. Patient drinks a paint of hard liquor a day and has been drinking for 2 years plus with some periods of sobriety in the past. No withdrawal seizures or DTs reported, 1 suicide attempt 6 years ago, currently not suicidal. Patient was admitted for alcohol withdrawal, severe thrombocyto penia. Patient would like to get rehab after discharge. Subjective: Seen this morning. He states that his lips get dry and then started bleeding. He states that he has also been having nosebleeds. Vitals Signs Reviewed. Physical exam General examination - Alert and Oriented 3 in NAD HEENT: Patient's gums are bleeding Heart - + S1S2 no murmurs Lungs - Clear to auscultation Abdomen soft NT ND +ve BS Extremities - No edema HOSPITALITY HOST - Moving all 4 extremities spontaneously Psych - Calm and cooperative Assessment and Plan: Alcohol withdrawal Severe alcohol abuse Alcoholic ketoacidosis, resolved Alcohol steatohepatitis -CIWA with Ativan -> patient has required a total of 7 mg of Ativan in the past 24 hours -Continue folic acid 1 mg p.o. daily, thiamine 100 mg p.o. daily. -Social work on board -PPI -Patient counseled on alcohol cessation Bicytopenia with leukopenia and thrombocytopenia Severe thrombocytopenia Consult hematology Patient's gums are bleeding this morning I will order for another unit of platelets. This morning platelets are 13 improved from 7. Hemoglobin stable 11.8. Severe hypokalemia: Potassium this morning is 2.9. Will order 20 mill equivalents of potassium chloride Nausea vomiting Resolved Hypertension Patient not on any meds Blood pressure acceptable DVT ppx: SCD, coagulation in the setting of severe thrombocytopenia Anticipated discharge place: [Home Anticipated discharge time: Pending on clinical course Objective - Vital Signs Vital signs: Vital Signs Temp 98.3 F 01/28/24 07:04 Pulse 97 01/28/24 07:04 Resp 16 01/28/24 07:04 BP 157/92 01/28/24 07:04 Pulse Ox 95 01/28/24 07:04 FiO2 Intake & Output 01/27/24 01/28/24 01/28/24 18:59 06:59 18:59 Intake Total 2100 1910 240 Output Total 1100 1850 Balance 1000 60 240 Intake: Intake, IV Titration 800 Amount Sodium Chloride 0.9% 1, 800 000 ml @ 75 mls/hr IV . [id number] [facility] Rx#:[id number] Oral 2100 540 240 Blood Product 570 Platelet Pheresis Pas 285 Psoralen Unit [id number] Output: Urine 1100 1850 Other: Voiding Method Urinal # Voids 1 # Bowel Movements 1 - Labs CBC & Chem 7: 01/28/24 04:49 01/28/24 04:49 Labs: Abnormal Lab Results - Last 24 Hours (Table) 01/27/24 01/27/24 01/27/24 Range/Units 09:37 16:53 21:07 WBC 2.43 L 3.1 L (4.50-10.00) X 10*3/uL RBC 3.39 L 3.66 L (4.40-5.60) X 10*6/uL Hgb 11.2 L 12.0 L (13.0-17.0) g/dL Hct 32.3 L 35.7 L (39.6-50.0) % MCH 33.0 H (27.0-32.0) pg Plt Count 7 A* 7 L* (140-440) X 10*3/uL Neutrophils # 1.78 L (1.80-7.70) X 10*3/uL Lymphocytes # 0.33 L 0.6 L (0.90-5.00) X 10*3/uL Eosinophils # 0.02 L (0.04-0.35) X 10*3/uL Immature Plt Fraction 12.3 H (1.1-6.1) % PT 14.2 H (10.0-12.5) sec INR 1.4 H (<1.2) Sodium (135-145) mmol/L Potassium (3.5-5.5) mmol/L Chloride (96-109) mmol/L Anion Gap (4.00-12.00) mmol/L BUN (9.0-27.0) mg/dL BUN/Creatinine Ratio (12.00-20.00) Ratio Calcium (8.7-10.3) mg/dL Total Bilirubin (0.3-1.2) mg/dL AST (14-35) U/L ALT (10-49) U/L Albumin (3.8-4.9) g/dL Albumin/Globulin Ratio (1.60-3.17) Ratio 01/28/24 01/28/24 Range/Units 04:49 04:49 WBC 3.19 L (4.50-10.00) X 10*3/uL RBC 3.63 L (4.40-5.60) X 10*6/uL Hgb 11.8 L (13.0-17.0) g/dL Hct 34.2 L (39.6-50.0) % MCH 32.5 H (27.0-32.0) pg Plt Count 13 A* (140-440) X 10*3/uL Neutrophils # (1.80-7.70) X 10*3/uL Lymphocytes # 0.37 L (0.90-5.00) X 10*3/uL Eosinophils # 0.02 L (0.04-0.35) X 10*3/uL Immature Plt Fraction 10.8 H (1.1-6.1) % PT (10.0-12.5) sec INR (<1.2) Sodium 134 L (135-145) mmol/L Potassium 2.9 L (3.5-5.5) mmol/L Chloride 95 L (96-109) mmol/L Anion Gap 16.70 H (4.00-12.00) mmol/L BUN 6.1 L (9.0-27.0) mg/dL BUN/Creatinine Ratio 10.17 L (12.00-20.00) Ratio Calcium 8.2 L (8.7-10.3) mg/dL Total Bilirubin 5.5 H (0.3-1.2) mg/dL AST 182 H (14-35) U/L ALT 96 H (10-49) U/L Albumin 3.7 L (3.8-4.9) g/dL Albumin/Globulin Ratio 1.19 L (1.60-3.17) Ratio
[2024-01-28 12:12] LABS: Glucose,Whole Blood 93 mg/dL (70-110)
[2024-01-28 17:14] LABS: Glucose,Whole Blood 105 mg/dL (70-110)
--- NOTE | 2024-01-28 18:53 | P.CONS ---
History of Present Illness - Reason for Consult Consult date: 01/28/24 thrombocytopenia Requesting physician: Bigg Amato - Chief Complaint etoh, epistaxis - History of Present Illness Patient is a 58-year-old male with a significant history of alcohol abuse. Consult was placed for thrombocytopenia. Patient presented to the emergency room with epistaxis. Patient reports he relapsed on alcohol 3 months ago and drinks daily since. Upon admit platelets were 19,000. During admission platelets went as low as 7000, s/p 1 doses of platelets. Today platelets 13,000. Patient is reporting persisting intermittent epistaxis as well as bleeding from his lips. Additional dose of plts ordered. Labs reviewed, WBC 3.1, hemoglobin 11.8, MCV 94.2. Differential showing no significan abnormalities. Coags showing mild elevation in PT and INR, 14.2 and 1.4 respectively. PTT 26.4. Fibrinogen 310. Bilirubin elevated at 5.5, with transaminitis. Lipase 377. Upon review of EMR no previous labs to trend. Patient states 1 to 2 years ago his platelets were in the teens when evaluated at [facility] but states he was drinking at that time as well. Last time they were checked was approximately April of this year and platelets were in the 70s, he states he was abstinent from alcohol at this time. Denies history of HIV and hepatitis. Denies IV drug abuse. Abdominal ultrasound showing increased hepatic parenchymal echogenicity suggesting steatosis. Biliary sludge without significant gallbladder wall thickening and edema. Review of Systems 10 point ROS is negative except as stated in the HPI Past Medical History Past Medical History: Hyperlipidemia, Hypertension History of Any Multi-Drug Resistant Organisms: None Reported Additional Past Surgical History / Comment(s): oral surgery Past Anesthesia/Blood Transfusion Reactions: No Reported Reaction Smoking Status: Former smoker, Vaper Past Alcohol Use History: Abuse, Daily, Heavy Past Drug Use History: None Reported Medications and Allergies Home Medications Medication Instructions Recorded Confirmed Type No Known Home Medications 01/25/24 01/25/24 History Allergies Allergy/AdvReac Type Severity Reaction Status Date / Time No Known Allergies Allergy Verified 01/25/24 19:52 Physical Exam Vitals: Vital Signs Temp Pulse Pulse Resp BP BP Pulse Ox 01/28/24 07:04 98.3 F 97 16 157/92 95 01/28/24 04:36 98.5 F 96 16 147/89 96 01/28/24 02:24 98.4 F 96 18 148/85 97 01/28/24 02:04 99.4 F 88 16 149/84 96 01/28/24 01:51 98.6 F 92 20 151/86 97 01/28/24 01:27 98.4 F 95 18 147/86 96 01/27/24 19:12 98.7 F 97 18 157/90 97 01/27/24 12:19 97.8 F 92 16 142/85 94 L Intake and Output 01/27/24 01/28/24 01/28/24 22:59 06:59 14:59 Intake Total 1320 1910 240 Output Total 2024 925 Balance -705 985 240 Intake: Intake, IV Titration 800 Amount Sodium Chloride 0.9% 1, 800 000 ml @ 75 mls/hr IV . [id number] [facility] Rx#:[id number] Oral 1320 540 240 Blood Product 570 Platelet Pheresis Pas 285 Psoralen Unit [id number] Output: Urine 2024 Other: Voiding Method Urinal # Voids 1 1 # Bowel Movements 1 - Constitutional General appearance: average body habitus, no acute distress - EENT dried blood on lips, no active epistaxis - Respiratory Respiratory: bilateral: CTA - Cardiovascular Rhythm: regular - Gastrointestinal General gastrointestinal: no tenderness - Integumentary Integumentary: no cyanotic, no jaundiced - Psychiatric Psychiatric: A&O x's 3 Results CBC & Chem 7: 01/28/24 04:49 01/28/24 04:49 Labs: Abnormal Lab Results - Last 24 Hours (Table) 01/27/24 01/27/24 01/27/24 Range/Units 09:37 09:37 16:53 WBC 2.43 L (4.50-10.00) X 10*3/uL RBC 3.39 L (4.40-5.60) X 10*6/uL Hgb 11.2 L (13.0-17.0) g/dL Hct 32.3 L (39.6-50.0) % MCH 33.0 H (27.0-32.0) pg Plt Count 7 A* (140-440) X 10*3/uL Neutrophils # 1.78 L (1.80-7.70) X 10*3/uL Lymphocytes # 0.33 L (0.90-5.00) X 10*3/uL Eosinophils # 0.02 L (0.04-0.35) X 10*3/uL Immature Plt Fraction 12.3 H (1.1-6.1) % PT 14.2 H (10.0-12.5) sec INR 1.4 H (<1.2) Sodium 134 L (137-145) mmol/L Potassium 3.1 L (3.5-5.1) mmol/L Chloride (96-109) mmol/L Anion Gap (4.00-12.00) mmol/L BUN (9.0-27.0) mg/dL Creatinine 0.63 L (0.66-1.25) mg/dL BUN/Creatinine Ratio (12.00-20.00) Ratio Calcium 7.9 L (8.4-10.2) mg/dL Total Bilirubin 4.9 H (0.2-1.3) mg/dL AST 205 H (17-59) U/L ALT 99 H (4-49) U/L Albumin (3.8-4.9) g/dL Albumin/Globulin Ratio (1.60-3.17) Ratio 01/27/24 01/28/24 01/28/24 Range/Units 21:07 04:49 04:49 WBC 3.1 L 3.19 L (4.50-10.00) X 10*3/uL RBC 3.66 L 3.63 L (4.40-5.60) X 10*6/uL Hgb 12.0 L 11.8 L (13.0-17.0) g/dL Hct 35.7 L 34.2 L (39.6-50.0) % MCH 32.5 H (27.0-32.0) pg Plt Count 7 L* 13 A* (140-440) X 10*3/uL Neutrophils # (1.80-7.70) X 10*3/uL Lymphocytes # 0.6 L 0.37 L (0.90-5.00) X 10*3/uL Eosinophils # 0.02 L (0.04-0.35) X 10*3/uL Immature Plt Fraction 10.8 H (1.1-6.1) % PT (10.0-12.5) sec INR (<1.2) Sodium 134 L (137-145) mmol/L Potassium 2.9 L (3.5-5.1) mmol/L Chloride 95 L (96-109) mmol/L Anion Gap 16.70 H (4.00-12.00) mmol/L BUN 6.1 L (9.0-27.0) mg/dL Creatinine (0.66-1.25) mg/dL BUN/Creatinine Ratio 10.17 L (12.00-20.00) Ratio Calcium 8.2 L (8.4-10.2) mg/dL Total Bilirubin 5.5 H (0.2-1.3) mg/dL AST 182 H (17-59) U/L ALT 96 H (4-49) U/L Albumin 3.7 L (3.8-4.9) g/dL Albumin/Globulin Ratio 1.19 L (1.60-3.17) Ratio US - abdomen: report reviewed Assessment and Plan (1) Alcoholic intoxication Current Visit: Yes Status: Acute Priority: High Code(s): F10.929 - ALCOHOL USE, UNSPECIFIED WITH INTOXICATION, UNSPECIFIED SNOMED Code(s): 14205897 (2) Alcoholic steatohepatitis Current Visit: Yes Status: Acute Priority: High Code(s): K70.10 - ALCOHOLIC HEPATITIS WITHOUT ASCITES SNOMED Code(s): 3982884584 (3) Thrombocytopenia Current Visit: Yes Status: Acute Priority: High Code(s): D69.6 - THROMBOCYTOPENIA, UNSPECIFIED SNOMED Code(s): 074641650 Plan: Pancytopenia: Patient presented to the emergency room with epistaxis. Patient reports he relapsed on alcohol 3 months ago and drinks daily since. -Upon admit platelets were 19,000. During admission platelets went as low as 7000, s/p 1 doses of platelets. Today platelets 13,000. Patient is reporting persisting intermittent epistaxis as well as bleeding from his lips. Additional dose of plts ordered. -WBC 3.1, hemoglobin 11.8, MCV 94.2. Differential showing no significant abnormalities. Upon review of EMR no previous labs to trend. Patient states 1-2 years ago his platelets were in the teens when evaluated at [facility] but was drinking alcohol regularly. Last time they were checked was approximately April of this year and platelets were in the 70 ranges, he states he was abstinent from alcohol at this time. -Coags showing mild elevation in PT and INR, 14.2 and 1.4 respectively. PTT 26.4. Fibrinogen 310. Bilirubin elevated at 5.5, with transaminitis. Lipase 377. -Abdominal ultrasound showing increased hepatic parenchymal echogenicity suggesting steatosis. Biliary sludge without significant gallbladder wall thickening and edema -Pancytopenia, with pronounced thrombocytopenia most likely related to underlying liver disease/etoh abuse. Alcohol cessation discussed -DIC labs negative. Will obtain further workup to r/o other etiologies -Continue to closely monitor CBC. Transfuse for plts <10,000 or if symptomatic
[2024-01-28 19:53] LABS: Glucose,Whole Blood 105 mg/dL (70-110)
[2024-01-28 21:28] LABS: Iron 39 UG/DL (65-175); Total Iron Binding Capacity 195 UG/DL (228-460)
[2024-01-29 02:12] LABS: Rheumatoid Factor, Qnt <15 IU/mL (0-15)
[2024-01-29 04:43] LABS: Protein, Total 6.8 g/dL (6.2-8.2)
[2024-01-29 05:00] LABS: Hepatitis A Antibody IgM Nonreactive (Nonreactive); Hepatitis B Core IgM Nonreactive (Nonreactive); Hepatitis B Surface Antigen Nonreactive (Nonreactive); Hepatitis C IgG Antibody Nonreactive (Nonreactive)
[2024-01-29 07:10] LABS: Glucose,Whole Blood 91 mg/dL (70-110)
[2024-01-29 09:40] LABS: HCT 35.5 % (39.6-50.0); HGB 12.5 g/dL (13.0-17.0); Immature Platelet Fraction 13.8 % (1.1-6.1); MCH 32.8 pg (27.0-32.0); MCHC 35.2 g/dL (32.0-37.0); MCV 93.2 FL (80.0-97.0); Mean Platelet Volume 12.5 FL (9.5-12.2); NRBC Per 100 WBC 0 X 10*3/uL (0.00-0.01); RBC 3.81 X 10*6/uL (4.40-5.60); RDW 12.7 % (11.5-14.5); WBC 3.71 X 10*3/uL (4.50-10.00)
[2024-01-29 09:56] LABS: Basophils # (A) 0.02 X 10*3/uL (0.00-0.10); Basophils % (A) 0.5 %; Eosinophils # (A) 0.05 X 10*3/uL (0.04-0.35); Eosinophils % (A) 1.3 %; Lymphocytes # (A) 0.53 X 10*3/uL (0.90-5.00); Lymphocytes % (A) 14.3 %; Monocytes # (A) 0.37 X 10*3/uL (0.20-1.00); Neutrophils % (A) 72.8 %; Platelet Count 17 X 10*3/uL (140-440)
[2024-01-29 10:26] LABS: BUN/Creat Ratio 12.67 Ratio (12.00-20.00); Blood Urea Nitrogen 7.6 mg/dL (9.0-27.0); Calcium 8.4 mg/dL (8.7-10.3); Carbon Dioxide 19.3 mmol/L (21.6-31.8); Chloride 99 mmol/L (96-109); Glucose 95 mg/dL (70-110); Potassium 3.2 mmol/L (3.5-5.5); Sodium 134 mmol/L (135-145)
--- NOTE | 2024-01-29 11:46 | P.PN ---
Subjective Progress Note Date: 01/29/24 Hospital Course: A 58-year-old male with past medical history of psoriasis, alcohol use disorder, HTN, who presented to the ER with vomiting, nosebleed, denied hematuria, hematochezia, melena. Patient drinks a paint of hard liquor a day and has been drinking for 2 years plus with some periods of sobriety in the past. No withdrawal seizures or DTs reported, 1 suicide attempt 6 years ago, currently not suicidal. Patient was admitted for alcohol withdrawal, severe thrombocyto penia. Patient would like to get rehab after discharge. Subjective: Patient states that he took a shower this morning. Patient states that his gums are still bleeding and he is also having epistaxis as well. Vitals Signs Reviewed. 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 daily, thiamine 100 mg p.o. daily. -Social work on board -PPI -Patient counseled on alcohol cessation Bicytopenia with leukopenia and thrombocytopenia likely due to alcohol use Severe thrombocytopenia I reviewed hematology note and they ordered labs for workup on bicytopenia Patient's gums are bleeding this morning I will order for another unit of platelets. Patient's platelets this morning did improved to 17 Hemoglobin is stable at 12.5 Severe hypokalemia: Potassium this morning is 3.2. Will order 80 mill equivalents of potassium chloride Nausea vomiting Resolved Hypertension Patient not on any meds Blood pressure acceptable DVT ppx: SCD, coagulation in the setting of severe thrombocytopenia Anticipated discharge place: [Home Anticipated discharge time: Pending on clinical course Objective - Vital Signs Vital signs: Vital Signs Temp 98.4 F 01/29/24 07:11 Pulse 87 01/29/24 07:11 Resp 16 01/29/24 07:11 BP 150/94 01/29/24 07:11 Pulse Ox 96 01/29/24 07:11 FiO2 Intake & Output 01/28/24 01/29/2401/28/24 18:59 06:59 18:59 Intake Total 480 825 Output Total 1125 275 Balance 480 -300 -275 Intake: Intake, IV Titration 825 Amount Sodium Chloride 0.9% 1, 825 000 ml @ 75 mls/hr IV . [id number] Rx#:[id number] Oral 480 Blood Product 0 Platelet Pheresis Pas 0 Psoralen Unit [id number] Output: Urine 1125 275 Other: Voiding Method Urinal Toilet Urinal # Voids 1 - Labs CBC & Chem 7: 01/29/24 04:16 01/29/24 04:16 Labs: Abnormal Lab Results - Last 24 Hours (Table) 01/28/24 01/28/24 01/28/24 Range/Units 12:56 12:56 12:56 WBC (4.50-10.00) X 10*3/uL RBC (4.40-5.60) X 10*6/uL Hgb (13.0-17.0) g/dL Hct (39.6-50.0) % MCH (27.0-32.0) pg Plt Count (140-440) X 10*3/uL MPV (9.5-12.2) FL Lymphocytes # (0.90-5.00) X 10*3/uL Immature Plt Fraction (1.1-6.1) % ESR 31 H (0-20) mm/Hr Sodium (135-145) mmol/L Potassium (3.5-5.5) mmol/L Carbon Dioxide (21.6-31.8) mmol/L Anion Gap (4.00-12.00) mmol/L BUN (9.0-27.0) mg/dL Calcium (8.7-10.3) mg/dL Iron 39 L (65-175) UG/DL TIBC 195 L (228-460) UG/DL Transferrin 139.0 L (204.0-354.0) mg/dL Ferritin 1201.0 H (22.0-322.0) ng/mL Vitamin B12 1908.0 H (200.0-944.0) pg/mL IgG 2129.0 H (700.0-1600.0) mg/dL IgA 526.0 H (60.0-350.0) mg/dL 01/29/24 01/29/24 Range/Units 04:16 04:16 WBC 3.71 L (4.50-10.00) X 10*3/uL RBC 3.81 L (4.40-5.60) X 10*6/uL Hgb 12.5 L (13.0-17.0) g/dL Hct 35.5 L (39.6-50.0) % MCH 32.8 H (27.0-32.0) pg Plt Count 17 A* (140-440) X 10*3/uL MPV 12.5 H (9.5-12.2) FL Lymphocytes # 0.53 L (0.90-5.00) X 10*3/uL Immature Plt Fraction 13.8 H (1.1-6.1) % ESR (0-20) mm/Hr Sodium 134 L (135-145) mmol/L Potassium 3.2 L (3.5-5.5) mmol/L Carbon Dioxide 19.3 L (21.6-31.8) mmol/L Anion Gap 15.70 H (4.00-12.00) mmol/L BUN 7.6 L (9.0-27.0) mg/dL Calcium 8.4 L (8.7-10.3) mg/dL Iron (65-175) UG/DL TIBC (228-460) UG/DL Transferrin (204.0-354.0) mg/dL Ferritin (22.0-322.0) ng/mL Vitamin B12 (200.0-944.0) pg/mL IgG (700.0-1600.0) mg/dL IgA (60.0-350.0) mg/dL
[2024-01-29 12:07] LABS: Glucose,Whole Blood 107 mg/dL (70-110)
[2024-01-29] MEDS: POTASSIUM CHLORIDE ER 20 MEQ TAB.ER PO SCH (13:49)
[2024-01-29 15:03] LABS: Free Kappa Lt Chain Qnt, Serum 3.94 mg/dL (0.33-1.94); Free Lambda Lt Chain Qnt, Seru 5.17 mg/dL (0.57-2.63)
[2024-01-29] MEDS: LORazepam 2 MG/ML INJ IV PRN (15:43)
[2024-01-29 17:10] LABS: Glucose,Whole Blood 107 mg/dL (70-110)
[2024-01-29 20:33] LABS: Glucose,Whole Blood 130 mg/dL (70-110)
[2024-01-30] MEDS ORDERED: LORazepam 1 MG TAB PO PRN ×3 (01:00→01:04)
[2024-01-30] MEDS: LORazepam 1 MG TAB PO PRN (01:20)
[2024-01-30 05:41] LABS: Methylmalonic Acid <0.10 umol/L (<0.40)
[2024-01-30 07:27] LABS: Glucose,Whole Blood 119 mg/dL (70-110)
[2024-01-30 08:57] LABS: Magnesium 1.9 mg/dL (1.5-2.4)
[2024-01-30 09:22] LABS: BUN/Creat Ratio 13.67 Ratio (12.00-20.00); Blood Urea Nitrogen 8.2 mg/dL (9.0-27.0); Calcium 8.5 mg/dL (8.7-10.3); Carbon Dioxide 22.1 mmol/L (21.6-31.8); Chloride 102 mmol/L (96-109); Glucose 100 mg/dL (70-110); Potassium 3.4 mmol/L (3.5-5.5); Sodium 134 mmol/L (135-145)
[2024-01-30 09:46] LABS: Basophils # (A) 0.03 X 10*3/uL (0.00-0.10); Basophils % (A) 0.8 %; Eosinophils # (A) 0.07 X 10*3/uL (0.04-0.35); HCT 38.5 % (39.6-50.0); HGB 12.9 g/dL (13.0-17.0); Lymphocytes # (A) 0.59 X 10*3/uL (0.90-5.00); Lymphocytes % (A) 16.6 %; MCH 32.7 pg (27.0-32.0); MCHC 33.5 g/dL (32.0-37.0); MCV 97.5 FL (80.0-97.0); Mean Platelet Volume 13.2 FL (9.5-12.2); Monocytes # (A) 0.51 X 10*3/uL (0.20-1.00); Monocytes % (A) 14.3 %; NRBC Per 100 WBC 0 X 10*3/uL (0.00-0.01); Neutrophils # (A) 2.33 X 10*3/uL (1.80-7.70); Neutrophils % (A) 65.5 %; Platelet Count 28 X 10*3/uL (140-440); RBC 3.95 X 10*6/uL (4.40-5.60); RDW 13.1 % (11.5-14.5); WBC 3.56 X 10*3/uL (4.50-10.00)
[2024-01-30 12:18] LABS: Glucose,Whole Blood 127 mg/dL (70-110)
--- NOTE | 2024-01-30 13:10 | P.PN ---
Subjective Progress Note Date: 01/30/24 Hospital Course: A 58-year-old male with past medical history of psoriasis, alcohol use disorder, HTN, who presented to the ER with vomiting, nosebleed, denied hematuria, hematochezia, melena. Patient drinks a paint of hard liquor a day and has been drinking for 2 years plus with some periods of sobriety in the past. No withdrawal seizures or DTs reported, 1 suicide attempt 6 years ago, currently not suicidal. Patient was admitted for alcohol withdrawal, severe thrombocyto penia. Patient would like to get rehab after discharge. Subjective: Patient states that he took a shower this morning. Patient states that his gums are still bleeding and he is also having epistaxis as well. Vitals Signs Reviewed. 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 daily, thiamine 100 mg p.o. daily. -Social work on board -PPI -Patient counseled on alcohol cessation Bicytopenia with leukopenia and thrombocytopenia likely due to alcohol use Severe thrombocytopenia I reviewed hematology note and they ordered labs for workup on bicytopenia Patient states that his bleeding is improving Morning patient's platelets are 28 improving Hemoglobin is stable If tomorrow platelets are stable or improving we will plan to discharge the patient home. Severe hypokalemia: Potassium this morning is 3.4. Will order for 60 mg of potassium chloride Nausea vomiting Resolved Hypertension Patient not on any meds Blood pressure acceptable DVT ppx: SCD, coagulation in the setting of severe thrombocytopenia Anticipated discharge place: [Home Anticipated discharge time: Pending on clinical course Objective - Vital Signs Vital signs: Vital Signs Temp 98.6 F 01/30/24 12:42 Pulse 112 H 01/30/24 12:42 Resp 16 01/30/24 12:42 BP 142/104 01/30/24 12:42 Pulse Ox 98 01/30/24 12:42 FiO2 Intake & Output 1201/30/24 01/30/24 18:59 06:59 18:59 Intake Total 1420 835 Output Total 1250 1000 250 Balance 170 -165 -250 Intake: Oral 1420 590 Blood Product 0 245 Platelet Pheresis Pas 0 245 Psoralen Unit [id number] Output: Urine 1250 1000 250 Other: Voiding Method Toilet Urinal Urinal - Labs CBC & Chem 7: 01/30/24 05:30 01/30/24 05:30 Labs: Abnormal Lab Results - Last 24 Hours (Table) 01/28/24 01/29/24 01/30/24 Range/Units 12:56 20:26 05:30 WBC 3.56 L (4.50-10.00) X 10*3/uL RBC 3.95 L (4.40-5.60) X 10*6/uL Hgb 12.9 L (13.0-17.0) g/dL Hct 38.5 L (39.6-50.0) % MCV 97.5 H (80.0-97.0) FL MCH 32.7 H (27.0-32.0) pg Plt Count 28 A* (140-440) X 10*3/uL MPV 13.2 H (9.5-12.2) FL Lymphocytes # 0.59 L (0.90-5.00) X 10*3/uL Immature Plt Fraction 9.0 H (1.1-6.1) % Sodium (135-145) mmol/L Potassium (3.5-5.5) mmol/L BUN (9.0-27.0) mg/dL POC Glucose (mg/dL) 130 H (70-110) mg/dL Calcium (8.7-10.3) mg/dL Free [place] LC, Quant 3.94 H (0.33-1.94) mg/dL Free [place]ambda LC, Quant 5.17 H (0.57-2.63) mg/dL 01/30/24 01/30/24 01/30/24 Range/Units 05:30 07:26 12:17 WBC (4.50-10.00) X 10*3/uL RBC (4.40-5.60) X 10*6/uL Hgb (13.0-17.0) g/dL Hct (39.6-50.0) % MCV (80.0-97.0) FL MCH (27.0-32.0) pg Plt Count (140-440) X 10*3/uL MPV (9.5-12.2) FL Lymphocytes # (0.90-5.00) X 10*3/uL Immature Plt Fraction (1.1-6.1) % Sodium 134 L (135-145) mmol/L Potassium 3.4 L (3.5-5.5) mmol/L BUN 8.2 L (9.0-27.0) mg/dL POC Glucose (mg/dL) 119 H 127 H (70-110) mg/dL Calcium 8.5 L (8.7-10.3) mg/dL Free [place] LC, Quant (0.33-1.94) mg/dL Free Lambda LC, Quant (0.57-2.63) mg/dL
--- NOTE | 2024-01-30 15:18 | P.PN ---
Subjective Progress Note Date: 01/30/24 No acute events. Reports improvement in epistaxis. Mild bleeding from gums when brushing his teeth. No acute bleeding noted at todays visit. Plt improved to 28,000. Hgb stable, 12.9 Objective - Vital Signs Vital signs: Vital Signs Temp 98.1 F 01/30/24 07:26 Pulse 89 01/30/24 07:26 Resp 17 01/30/24 07:26 BP 145/95 01/30/24 07:26 Pulse Ox 98 01/30/24 07:26 FiO2 Intake & Output 01/29/24 01/30/24 01/30/24 18:59 06:59 18:59 Intake Total 1420 835 Output Total 1250 1000 250 Balance 170 -165 -250 Intake: Oral 1420 590 Blood Product 0 245 Platelet Pheresis Pas 0 245 Psoralen Unit [id number] Output: Urine 1250 1000 250 Other: Voiding Method Toilet Urinal Urinal - Constitutional General appearance: Present: average body habitus, no acute distress - Respiratory Details: breathing is even and unlabored - Cardiovascular Details: well perfused - Integumentary Integumentary: Absent: cyanotic - Labs CBC & Chem 7: 01/30/24 05:30 01/30/24 05:30 Labs: Abnormal Lab Results - Last 24 Hours (Table) 01/28/24 01/29/24 01/30/24 Range/Units 12:56 20:26 05:30 WBC 3.56 L (4.50-10.00) X 10*3/uL RBC 3.95 L (4.40-5.60) X 10*6/uL Hgb 12.9 L (13.0-17.0) g/dL Hct 38.5 L (39.6-50.0) % MCV 97.5 H (80.0-97.0) FL MCH 32.7 H (27.0-32.0) pg Plt Count 28 A* (140-440) X 10*3/uL MPV 13.2 H (9.5-12.2) FL Lymphocytes # 0.59 L (0.90-5.00) X 10*3/uL Immature Plt Fraction 9.0 H (1.1-6.1) % Sodium (135-145) mmol/L Potassium (3.5-5.5) mmol/L BUN (9.0-27.0) mg/dL POC Glucose (mg/dL) 130 H (70-110) mg/dL Calcium (8.7-10.3) mg/dL Free [place] [employer] LC, Quant 3.94 H (0.33-1.94) mg/dL Free Lambda LC, Quant 5.17 H (0.57-2.63) mg/dL 01/30/24 01/30/24 01/30/24 Range/Units 05:30 07:26 12:17 WBC (4.50-10.00) X 10*3/uL RBC (4.40-5.60) X 10*6/uL Hgb (13.0-17.0) g/dL Hct (39.6-50.0) % MCV (80.0-97.0) FL MCH (27.0-32.0) pg Plt Count (140-440) X 10*3/uL MPV (9.5-12.2) FL Lymphocytes # (0.90-5.00) X 10*3/uL Immature Plt Fraction (1.1-6.1) % Sodium 134 L (135-145) mmol/L Potassium 3.4 L (3.5-5.5) mmol/L BUN 8.2 L (9.0-27.0) mg/dL POC Glucose (mg/dL) 119 H 127 H (70-110) mg/dL Calcium 8.5 L (8.7-10.3) mg/dL Free [place] LC, Quant (0.33-1.94) mg/dL Free Lambda LC, Quant (0.57-2.63) mg/dL Assessment and Plan (1) Alcoholic intoxication Current Visit: Yes Status: Acute Priority: High Code(s): F10.929 - ALCOHOL USE, UNSPECIFIED WITH INTOXICATION, UNSPECIFIED SNOMED Code(s): 04142030 (2) Alcoholic steatohepatitis Current Visit: Yes Status: Acute Priority: High Code(s): K70.10 - ALCOH OLIC HEPATITIS WITHOUT ASCITES SNOMED Code(s): 2201034650 (3) Thrombocytopenia Current Visit: Yes Status: Acute Priority: High Code(s): D69.6 - THROM BOCYTOPENIA, UNSPECIFIED SNOMED Code(s): 174401771 Plan: Pancytopenia: Patient presented to the emergency room with epistaxis. Patient reports he relapsed on alcohol 3 months ago and drinks daily since. -Upon admit platelets were 19,000. During admission platelets went as low as 7000. -WBC 3.1, hemoglobin 11.8, MCV 94.2. Differential showing no significant abnormalities. Upon review of EMR no previous labs to trend. Patient states 1-2 years ago his platelets were in the teens when evaluated at [facility] but was drinking alcohol regularly. Last time they were checked was approximately April of this year and platelets were in the 70 ranges, he states he was abstinent from alcohol at this time. -Coags showed mild elevation in PT and INR, 14.2 and 1.4 respectively. PTT 26.4. Fibrinogen 310. Bilirubin elevated at 5.5, with transaminitis. Lipase 377. -Abdominal ultrasound showing increased hepatic parenchymal echogenicity suggesting steatosis. Biliary sludge without significant gallbladder wall thickening and edema -Pancytopenia, with pronounced thrombocytopenia most likely related to underlying liver disease/etoh abuse. Alcohol cessation discussed -Pancytopenia workup thus far negative. SPEP and immunofixation and HIV still pending. -S/p 3 doses plts. Plts 28,000 today. No acute bleeding noted at todays visit. -Continue to monitor CBC. Transfuse for plts <10,000 or if symptomatic Spoke with IM regarding case. Plan for discharge today. Will f/u on pending workup. Bleeding precautions and alcohol cessation further discussed at today's visit. Pt cleared for discharge from hem/onc standpoint once cleared by admitting team and other consulted specialities. Recommend f/u with PCP, to have CBC recheck within the next 5 days
[2024-01-30] MEDS: POTASSIUM CHLORIDE ER 20 MEQ TAB.ER PO STA ×2 (16:13)
[2024-01-30 17:09] LABS: Glucose,Whole Blood 107 mg/dL (70-110)
[2024-01-30 20:39] LABS: Glucose,Whole Blood 114 mg/dL (70-110)
[2024-01-30] MEDS: LORazepam 0.5 MG TAB PO PRN (21:44)
[2024-01-31 07:18] LABS: Glucose,Whole Blood 95 mg/dL (70-110)
[2024-01-31 08:25] VITALS: BP 124/91; PULSE 126; RESP 17; TEMP 99.2
[2024-01-31 10:11] LABS: HCT 38.1 % (39.0-53.0); HGB 12.6 gm/dL (13.0-17.5); MCH 33.1 pg (25.0-35.0); MCHC 33.1 g/dL (31.0-37.0); MCV 99.8 fL (80.0-100.0); Mean Platelet Volume 10.4; RBC 3.82 m/uL (4.30-5.90); RDW 13.4 % (11.5-15.5); WBC 3.3 k/uL (3.8-10.6)
[2024-01-31 10:13] LABS: Platelet Count 36 k/uL (150-450)
--- NOTE | 2024-01-31 11:14 | P.DS ---
Providers Date of admission: 01/25/24 20:43 Attending physician: Aj Siddiqi MD Consults: 01/28/24 09:38 Consult Physician Routine Consulting Provider: Agnieszka Diaz Consult Reason/Comments: thrombocytopenia Do you want consulting provider notified?: Yes Primary care physician: Stated None Hospital Course: Discharge Diagnosis: Alcohol withdrawal Severe alcohol abuse Alcoholic ketoacidosis, resolved Alcohol steatohepatitis Bicytopenia with leukopenia and thrombocytopenia likely due to alcohol use Severe thrombocytopenia; improving at the time of discharge Severe hypokalemia Hypertension Hospital Course: A 58-year-old male with past medical history of psoriasis, alcohol use disorder, HTN, who presented to the ER with vomiting and nosebleed,. Patient drinks a paint of hard liquor a day and has been drinking for 2 years plus with some periods of sobriety in the past. Patient was admitted for alcohol withdrawal and severe thrombocytopenia. Patient was started on CIWA protocol. Patient was seen by case management. Patient was provided with resources for alcohol rehab. Patient plans to go to alcohol rehab through the [place]. Hematology also following the patient for the severe thrombocytopenia. Patient did require multiple platelet transfusions as he continued to have bleeding from his gums as well as nose. At the time of discharge patient's platelets were increasing without platelet transfusion and his bleeding had resolved. Likely cause of his thrombocytopenia is alcohol use. Patient was counseled extensively on alcohol cessation. Patient deemed stable for discharge. Patient was instructed to follow-up with hematology as there is still blood work pending for workup for his thrombocytopenia Patient seen and examined at bedside.[] Vital signs reviewed and stable. 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 Patient discharged on [01/31/2024] Patient Condition at Discharge: Fair Plan - Discharge Summary Discharge Rx Participant: Yes New Discharge Prescriptions: Continue No Known Home Medications Discharge Medication List No Known Home Medications 01/25/24 [History] Follow up Appointment(s)/Referral(s): None,Stated [Primary Care Provider] - 1-2 days Agnieszka Diaz MD [STAFF PHYSICIAN] - 1 Week Discharge/Stand Alone Forms: AA Meetings [place], [facility] Shelters, Community Resources, Outpatient Counseling, Outpatient Therapy List, Area PCPs Discharge Disposition: HOME SELF-CARE
[2024-01-31 14:56] LABS: Albumin 3.42 g/dL (3.80-4.90); Gamma Globulin 1.82 g/dL (0.70-1.50)
[2024-02-03 20:21] LABS: HIV 2 AB Non-Reactive (Non-Reactive); HIV AB P24 Non-Reactive (Non-Reactive); HIV P24 AG Non-Reactive (Non-Reactive)
== END 2024-01-31 12:26 | disposition home or self-care (01) | DRG 897 ==
LOC: EC 16:36 → 5NMEDONC 20:43 → OBSVTOIN 20:43 → 5NMEDONC 01-26 06:54
PROVIDERS: ADMIT Internal Medicine; ATTEND Internal Medicine
PROC: 30233R1 Transfusion of Nonautologous Platelets into Peripheral Vein, Percutaneous Approach (ICD-10-PCS; principal; 2024-01-28)
DX: F10.239 Alcohol dependence with withdrawal, unspecified (principal); E87.29 Other acidosis; Z59.01 Sheltered homelessness; R04.2 Hemoptysis; E87.1 Hypo-osmolality and hyponatremia; D69.59 Other secondary thrombocytopenia; K70.10 Alcoholic hepatitis without ascites; F10.229 Alcohol dependence with intoxication, unspecified; I10 Essential (primary) hypertension; D64.9 Anemia, unspecified; D72.819 Decreased white blood cell count, unspecified; E78.5 Hyperlipidemia, unspecified; E87.6 Hypokalemia; K06.8 Other specified disorders of gingiva and edentulous alveolar ridge; F17.290 Nicotine dependence, other tobacco product, uncomplicated; L40.9 Psoriasis, unspecified; R04.0 Epistaxis; E66.3 Overweight; Y90.8 Blood alcohol level of 240 mg/100 ml or more; Z91.51 Personal history of suicidal behavior; Y92.59 Other trade areas as the place of occurrence of the external cause; Z71.41 Alcohol abuse counseling and surveillance of alcoholic; Z71.6 Tobacco abuse counseling
CPT/HCPCS: 36415; 36600; 70450; 76705; 80048; 80053; 80074; 80306; 80320; 81001; 82009; 82607; 82728; 82747; 82784; 82805; 83540; 83550; 83605; 83690; 83735; 83883; 83921; 83930; 84100; 84165; 84443; 85025; 85027; 85379; 85384; 85610; 85652; 85730; 86038; 86334; 86431; 86850; 86900; 86901; 87390; 96361; 96365; 96366; 96375; 96376; 99285